=== PATIENT | female | born 1955 | race Hispanic/Latino ===

== ENCOUNTER 2020-11-26 13:35 | Emergency (ER) | payer SELFPAY ==
[2020-11-26 16:55] LABS: Clarity Clear (Clear)
[2020-11-26 16:56] LABS: Bilirubin Negative (Negative); Blood, Urine Negative (Negative); Glucose, Urine (Dipstick) Negative (Negative); Ketone, Urine Negative (Negative); Leukocyte Trace (Negative); Nitrite Negative (Negative); Protein, Urine (Dipstick) Negative (Neg-Trace); Urobilinogen 0.2 mg/dL (Less than 2); pH, Urine 8.5 (5.0-9.0)
[2020-11-26 16:57] LABS: Bacteria/HPF Rare-Few HPF (None Seen); RBC/HPF 0-3 HPF (0-3); Squamous Epithelial 0-3 HPF (0-3); WBC/HPF 0-3 HPF (0-3)
[2020-11-26 16:57] LABS: Hemoglobin 13.9 g/dL (12.0-16.0); Mean Corpuscular HGB CONC 34.2 g/dL (32.0-36.0); Mean Corpuscular Volume 90.8 fL (78.0-98.0); RBC Distribution Width 11.8 % (11.5-14.5)
[2020-11-26 16:58] LABS: #Neutrophils 5.2 thou/uL (1.40-6.50); %Basophils 0.7 % (0.0-1.0); %Monocytes 6.2 % (0.0-10.0); %Neutrophils 65.2 % (42.0-75.0); Manual Diff?? YES; Mean Platelet Volume 7.8 fL (7.4-10.4); Platelet Count 250 thou/uL (130-400)
[2020-11-26 16:59] LABS: #Basophils 0.1 thou/uL (0.0-0.2); #Eosinphils 0.2 thou/uL (0.0-0.7); #Monocytes 0.5 thou/uL (0.11-0.59); MDiff Complete? YES
[2020-11-26 17:00] LABS: Anion Gap 18 mmol/L (10-20); BUN (Urea Nitrogen) 19 mg/dL (9.8-20.1); Calc. Creatinine Clearance 0 mL/min (70-130); Calcium 9.6 mg/dL (7.8-10.44); Carbon Dioxide 23 mmol/L (23-31); Chloride 101 mmol/L (98-107); Glucose 118 mg/dL (80-115); Potassium 3.8 mmol/L (3.5-5.1); Sodium 138 mmol/L (136-145)
[2020-11-26 17:01] LABS: ALT (SGPT) 21 U/L (8-55); AST (SGOT) 18 U/L (5-34); Albumin 4.3 g/dL (3.4-4.8); Alkaline Phosphatase 89 U/L (40-110); Bilirubin, Total 0.6 mg/dL (0.2-1.2); CK (CPK) 104 U/L (29-168); Globulin 3.7 g/dL (2.4-3.5); Lipase 17 U/L (8-78)
[2020-11-26 17:02] LABS: Troponin I 0.016 ng/mL (< 0.028)
[2020-11-26 17:03] LABS: Thyroid Stimulating Hormone 2.5616 uIU/mL (0.35-4.94)
[2020-11-26 21:23] LABS: Free T4 (Free Thyroxine) 0.98 ng/dL (0.70-1.48)
== END 2020-11-26 16:00 | disposition home or self-care (01) ==
LOC: BURERS 13:35
DX: R53.1 Weakness (principal); I10 Essential (primary) hypertension; E11.9 Type 2 diabetes mellitus without complications
CPT/HCPCS: 80053; 81003; 81015; 82550; 82553; 83690; 84439; 84443; 84484; 85025; 87086